=== PATIENT | female | born 1940 | race Caucasian/White ===

== ENCOUNTER 2021-06-09 12:07 | Inpatient (IN) ==
[2021-06-09] MEDS ORDERED: IOPAMIDOL 100 ML BOTTLE IV ONE (12:08)
[2021-06-09] MEDS ORDERED: DILTIAZEM 25 MG/5 ML VIAL IV ONE ×2 (12:14→15:11)
[2021-06-09] MEDS ORDERED: 0.9 % SODIUM CHLORIDE 1,000 ML IV ONE (12:14)
[2021-06-09] MEDS ORDERED: ENOXAPARIN 100 MG/ML SYRINGE SQ SCH (12:15)
--- NOTE | 2021-06-09 12:20 | Emergency Department Note ---
Arrhythmia/Palpitations HPI General Chief Complaint: Arrhythmia/Palpitations Stated Complaint: irreg heart Time Seen by Provider: 06/09/21 12:14 Source: patient Mode of arrival: EMS Limitations: no limitations History of Present Illness HPI Narrative: Narrative: The patient presents with A. fib with RVR. The patient herself denies any symptoms. She denies chest or abdominal pain. She denies palpitations. She denies dyspnea. She denies recent vomiting or diarrhea. She denies fever or cough. She denies any history of dysrhythmias. Related Data Allergies Allergy/AdvReac Type Severity Reaction Status Date / Time No Known Allergies AdvReac Verified 06/09/21 12:13 Review of Systems ROS ROS Narrative: Narrative: All systems ED: reviewed and negative except as stated. [facility], [facility] Narrative Patient History Narrative: Narrative: Medical/Surgical/Family History All Active Problems (Updated 06/09/21 @ 16:31 by Mohit Watson MD) Atrial fibrillation with rapid ventricular response (Acute) Hypoxia (Acute) Social History Smoking Status: Unknown if ever smoked Exam Narrative Narrative: Narrative: General Limitations: no limitations General appearance: Present alert and in no apparent distress Head Head: Present atraumatic and normal inspection Eye Eye: Present normal appearance Neck Neck: Present normal inspection, full ROM and trachea midline Chest Chest: Present normal inspection and symmetric chest wall rise Respiratory Respiratory: Present normal lung sounds bilaterally; Absent respiratory distress Cardiovascular Cardiovascular: Present tachycardia and irregular rhythm; Absent regular rate or normal rhythm Adbominal Abdominal: Present soft; Absent distention or tenderness Extremities Extremities: Present normal inspection, full ROM and pedal edema; Absent calf tenderness or other (Negative Homans' sign) Back Back: Present full ROM Neurological Neurological: Present alert and oriented X3 Psychiatric Psychiatric: Present normal affect and normal mood Skin Skin: Present warm (WNL) and dry Course Reevaluation(s) Reevaluation #1: The patient's heart rate is improved but she is still tachycardic. She is already at 15 on the Cardizem drip. Per the protocol at this facility, they do not want to increase the rate. They are recommending that we give an additional bolus. Plan to give an additional 10 mg of Cardizem. Time: 15:11 Consultations Consultation #1: I spoke with the hospitalist, Dr. Young. He agreed to come and evaluate this patient for local admission. He is aware that the CT is still pending. However, the patient has already been given Lovenox for the A. fib so is anticoagulated even if the CT is positive for pulmonary emboli Time: 16:29 Vital Signs Vital signs: Vital Signs Temperature 98.2 F 06/09/21 12:08 Pulse Rate 173 H 06/09/21 12:08 Respiratory Rate 24 H 06/09/21 12:08 Blood Pressure 114/82 06/09/21 12:08 Pulse Oximetry (%) 87 L 06/09/21 12:08 Temperature 98.2 F 06/09/21 12:08 Pulse Rate 71 06/09/21 16:00 Respiratory Rate 16 06/09/21 16:56 Blood Pressure 117/70 06/09/21 16:52 Pulse Oximetry (%) 89 L 06/09/21 16:00 MDM MDM Narrative Medical decision making narrative: Narrative: The patient presents asymptomatic but is noted to be in atrial fibrillation with RVR. We will obtain appropriate labs and give a liter of fluid. We will give a dose of Cardizem. We will anticoagulate with a dose of Lovenox. Once work-up is complete, patient most likely will need to either be admitted or transferred. Lab Data Lab results reviewed: Yes I reviewed the patient's lab results. Result diagrams: 06/09/21 12:30 06/09/21 12:30 Labs: Lab Results 06/09/21 06/09/21 06/09/21 Range/Units 12:30 12:30 12:30 WBC 7.1 (4.5-11.0) K/mcL RBC 3.12 L (3.59-5.38) M/mcL Hgb 10.5 L (11.2-15.7) g/dL Hct 33.9 L (34.1-44.9) % MCV 108.7 H (80.0-100.0) fL MCH 33.7 (26.0-34.0) pg MCHC 31.0 (31.0-36.0) g/dL RDW 18.6 H (11.5-14.5) % Plt Count 198 (140-440) K/mcL MPV 9.5 (7.4-10.4) fL Neut % (Auto) 75.9 (38.0-78.0) % Lymph % (Auto) 14.8 L (15.5-49.0) % [place] % (Auto) 7.8 (1.0-12.0) % Eos % (Auto) 1.1 (0.0-7.0) % Baso % (Auto) 0.4 (0.0-2.0) % Lymph # (Auto) 1.05 L (1.50-4.80) K/mcL [place] # (Auto) 0.55 (0.10-0.90) K/mcL Eos # (Auto) 0.08 (0.00-0.70) K/mcL Baso # (Auto) 0.03 (0.00-0.30) K/mcL Absolute Neutrophils 5.37 (1.80-8.00) K/mcL PT 17.1 H (11.9-14.5) sec INR 1.3 H (0.9-1.1) APTT 29.3 (20.0-37.0) sec D-Dimer 2.38 H (0.27-0.50) ug/mL Sodium 141 (133-145) mmol/L Potassium 4.3 (3.3-5.1) mmol/L Chloride 106 (96-108) mmol/L Carbon Dioxide 20 L (22-30) mmol/L Anion Gap 15.0 (8.0-16.0) BUN 27 H (8-23) mg/dL Creatinine 0.8 (0.6-1.1) mg/dL GFR Calculation 68 Glucose 108 H (70-105) mg/dL Calcium 8.7 (8.6-10.4) mg/dL Total Bilirubin 0.6 (0.1-1.0) mg/dL AST 23 (<32) U/L ALT 12 (<40) U/L Alkaline Phosphatase 117 (39-117) U/L Troponin T (<0.03) ng/mL NT-Pro-B Natriuret Pep 5031.0 H (<450.0) pg/mL Total Protein 6.9 (5.9-8.4) gm/dL Albumin 3.2 (3.2-5.2) gm/dL Globulin 3.7 (2.2-3.7) gm/dL Albumin/Globulin Ratio 0.9 L (1.0-2.3) TSH 4.50 (0.27-5.01) uIU/mL 06/09/21 Range/Units 12:30 WBC (4.5-11.0) K/mcL RBC (3.59-5.38) M/mcL Hgb (11.2-15.7) g/dL Hct (34.1-44.9) % MCV (80.0-100.0) fL MCH (26.0-34.0) pg MCHC (31.0-36.0) g/dL RDW (11.5-14.5) % Plt Count (140-440) K/mcL MPV (7.4-10.4) fL Neut % (Auto) (38.0-78.0) % Lymph % (Auto) (15.5-49.0) % [place] % (Auto) (1.0-12.0) % Eos % (Auto) (0.0-7.0) % Baso % (Auto) (0.0-2.0) % Lymph # (Auto) (1.50-4.80) K/mcL [place] # (Auto) (0.10-0.90) K/mcL Eos # (Auto) (0.00-0.70) K/mcL Baso # (Auto) (0.00-0.30) K/mcL Absolute Neutrophils (1.80-8.00) K/mcL PT (11.9-14.5) sec INR (0.9-1.1) APTT (20.0-37.0) sec D-Dimer (0.27-0.50) ug/mL Sodium (133-145) mmol/L Potassium (3.3-5.1) mmol/L Chloride (96-108) mmol/L Carbon Dioxide (22-30) mmol/L Anion Gap (8.0-16.0) BUN (8-23) mg/dL Creatinine (0.6-1.1) mg/dL GFR Calculation Glucose (70-105) mg/dL Calcium (8.6-10.4) mg/dL Total Bilirubin (0.1-1.0) mg/dL AST (<32) U/L ALT (<40) U/L Alkaline Phosphatase (39-117) U/L Troponin T < 0.01 (<0.03) ng/mL NT-Pro-B Natriuret Pep (<450.0) pg/mL Total Protein (5.9-8.4) gm/dL Albumin (3.2-5.2) gm/dL Globulin (2.2-3.7) gm/dL Albumin/Globulin Ratio (1.0-2.3) TSH (0.27-5.01) uIU/mL ED POC Tests ED POC Tests: ALICIA - SARS Antigen Negative Radiology Data Radiology results reviewed: Yes I reviewed the patient's radiology results. Radiology results narrative: IMPRESSION: Findings consistent with congestive heart failure EKG Data EKG #1: EKG attestation: Yes I reviewed and interpreted this EKG. and Yes There are no EKG findings of acute coronary syndrome EKG results narrative: Atrial fibrillation, rate 175, normal axis, QTC 470, narrow complex QRS, no acute ST or T changes concerning for acute infarction CC TIME Critical Care Time Critical Care Time: Yes Total Critical Care Time: 85 Attestation: Without intervention, the patient would have had a deleterious outcome Discharge Plan Patient/Caregiver Discharge Instructions Pt seen by INSURANCE COMMISSIONER/PA only: No Clinical Impression: Atrial fibrillation with rapid ventricular response, Hypoxia Patient Disposition: Xfer As Inpt ([facility]) Condition: Fair Follow up with: No,PCP [Primary Care Provider] -
--- NOTE | 2021-06-09 12:50 | XRay Report ---
INDICATION: dysrhythmia TECHNIQUE: AP portable semiupright chest x-ray COMPARISON: None FINDINGS:There is mild cardiomegaly. There are parenchymal infiltrates with bibasilar predominance. There are bilateral pleural effusions, right worse than left. Appearance is most consistent with congestive heart failure. Infiltrates are worse at the lung bases. Superimposed pneumonia is possible There is no dense consolidation. No focal pulmonary parenchymal mass. There is degenerative disease in both shoulders, right worse than left. There is superior decentering of the humeral heads consistent with rotator cuff degeneration. There has been apparent surgical resection of the mid and distal right clavicle IMPRESSION: Findings consistent with congestive heart failure Interpreted and Authenticated by: Partha Franco 06/09/21
--- NOTE | 2021-06-09 12:59 | EKG ---
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
[2021-06-09 13:24] LABS: Basophils # (Auto) 0.03 K/mcL (0.00-0.30); Basophils % (Auto) 0.4 % (0.0-2.0); Eosinophils # (Auto) 0.08 K/mcL (0.00-0.70); Eosinophils % (Auto) 1.1 % (0.0-7.0); Hematocrit 33.9 % (34.1-44.9); Hemoglobin 10.5 g/dL (11.2-15.7); Lymphocytes # (Auto) 1.05 K/mcL (1.50-4.80); Lymphocytes % (Auto) 14.8 % (15.5-49.0); Mean Cell Volume 108.7 fL (80.0-100.0); Mean Platelet Volume 9.5 fL (7.4-10.4); Monocytes # (Auto) 0.55 K/mcL (0.10-0.90); Monocytes % (Auto) 7.8 % (1.0-12.0); Neutrophils % (Auto) 75.9 % (38.0-78.0); Platelet Count 198 K/mcL (140-440); RBC 3.12 M/mcL (3.59-5.38); Red Cell Distribution Width 18.6 % (11.5-14.5); WBC 7.1 K/mcL (4.5-11.0)
[2021-06-09] MEDS: DILTIAZEM 125 MG in DEXTROSE 5% IN WATER 100 ML IV SCH ×2 (13:46→22:17)
[2021-06-09 14:01] LABS: ALT/SGPT 12 U/L (<40); AST/SGOT 23 U/L (<32); Albumin 3.2 gm/dL (3.2-5.2); Albumin/Globulin Ratio 0.9 (1.0-2.3); Alkaline Phosphatase 117 U/L (39-117); Bilirubin,Total 0.6 mg/dL (0.1-1.0); Blood Urea Nitrogen 27 mg/dL (8-23); Calcium 8.7 mg/dL (8.6-10.4); Carbon Dioxide 20 mmol/L (22-30); Chloride 106 mmol/L (96-108); Globulin 3.7 gm/dL (2.2-3.7); Glomerular Filtration Rate 68; Glucose 108 mg/dL (70-105)
[2021-06-09 14:53] LABS: INR 1.3 (0.9-1.1); Partial Thromboplastin Time 29.3 sec (20.0-37.0); Prothrombin Time 17.1 sec (11.9-14.5)
--- NOTE | 2021-06-09 16:43 | Internal Med History&Physical ---
HPI History of Present Illness Patient information: Note initiated : 06/09/21 at 4:41 pm Service Date, if different from initiated Date: [] Patient: Madie Cohn a 80 y/o F admitted on for Irregular Heart. Chief Complaint: [] History of present illness: Ms. Cohn is a 80 year old F with no significant prior medical history who presents to the ER with 3 weeks onset of gradually progressive lower extremity swelling/shortness of breath/orthopnea/fatigue/malaise and associated cough. Patient has not been able to function over the last 3 to 4 days. She presents today to the ER for evaluation of chest palpitation. Initial work-up was consistent with A. fib with RVR. Patient was started on diltiazem drip.CT angiogram chest was ordered. X-ray consistent with CHF At the time of my evaluation patient is alert and oriented. She was able to answer most the question but appears quite fatigued and labored. She endorses history as above. Denies NSAID intake, changes in medication, excessive salt diet or alcoholism. She feels that she has gained in excess of 20 pounds over the last 3 weeks. She endorses a loss of appetite, increasing malaise and fatigue but denies fever, joint pain, rash. Review of systems 10 point review system was performed and is negative except for 1 discussed above PFSH PFSH All Active Problems (Updated 06/09/21 @ 16:31 by Mohit Watson MD) Atrial fibrillation with rapid ventricular response (Acute) Hypoxia (Acute) MEDS/ALLERGIES Home Medications and Allergies Allergies Allergy/AdvReac Type Severity Reaction Status Date / Time No Known Allergies AdvReac Verified 06/09/21 12:13 EXAM Constitutional Vitals: Temp Pulse Resp BP Pulse Ox 98.2 F 71 20 123/72 89 L 06/09/21 12:08 06/09/21 16:00 06/09/21 16:00 06/09/21 16:00 06/09/21 16:00 Lethargic fatigued and anxious Head normocephalic Oral cavity moist No ear or nose discharge Eye no subconjunctival pallor, movement symmetrical S1-S2 irregular tachycardia Labored breathing on 3 L oxygen Nondistended nontender abdomen Bilateral 2+ pitting edema all the way up to mid thigh from ankle. Nojoint swelling Skin no suspicious lesion Psych anxious but no hallucination Neuro GCS 13 DATA Data Completed and Pending Labs: Labs from last 24 hours 06/09/21 06/09/21 06/09/21 12:30 12:30 12:30 WBC RBC Hgb Hct MCV MCH MCHC RDW Plt Count MPV Neut % (Auto) Lymph % (Auto) [place] % (Auto) Eos % (Auto) Baso % (Auto) Lymph # (Auto) [place] # (Auto) Eos # (Auto) Baso # (Auto) Absolute Neutrophils PT 17.1 H INR 1.3 H APTT 29.3 D-Dimer 2.38 H Sodium 141 Potassium 4.3 Chloride 106 Carbon Dioxide 20 L Anion Gap 15.0 BUN 27 H Creatinine 0.8 GFR Calculation 68 Glucose 108 H Calcium 8.7 Total Bilirubin 0.6 AST 23 ALT 12 Alkaline Phosphatase 117 Troponin T < 0.01 NT-Pro-B Natriuret Pep 5031.0 H Total Protein 6.9 Albumin 3.2 Globulin 3.7 Albumin/Globulin Ratio 0.9 L TSH 4.50 06/09/21 12:30 WBC 7.1 RBC 3.12 L Hgb 10.5 L Hct 33.9 L MCV 108.7 H MCH 33.7 MCHC 31.0 RDW 18.6 H Plt Count 198 MPV 9.5 Neut % (Auto) 75.9 Lymph % (Auto) 14.8 L [place] % (Auto) 7.8 Eos % (Auto) 1.1 Baso % (Auto) 0.4 Lymph # (Auto) 1.05 L [place] # (Auto) 0.55 Eos # (Auto) 0.08 Baso # (Auto) 0.03 Absolute Neutrophils 5.37 PT INR APTT D-Dimer Sodium Potassium Chloride Carbon Dioxide Anion Gap BUN Creatinine GFR Calculation Glucose Calcium Total Bilirubin AST ALT Alkaline Phosphatase Troponin T NT-Pro-B Natriuret Pep Total Protein Albumin Globulin Albumin/Globulin Ratio TSH A/P Narrative A/P Narrative: * Acute decompensated heart failure, likely secondary to A. fib RVR. Echocardiogram, diuresis, beta-roni once acute decompensation resolves. Optimize CHF management based on echo findings * A. fib with RVR-aggressive rate control measures. Anticoagulation for CVA prophylaxis on apixaban * Acute hypoxic respiratory failure-secondary to acute decompensated heart failure/pulmonary edema. Continue diuresis/supplemental oxygen * Weakness and deconditioning PT OT/gait and safety eval and training * Prophylaxis apixaban Plan * Inpatient PCU admission * Cardizem drip * Rate control measures * Anticoagulation on apixaban * Supplemental oxygen * Diuresis * Echocardiogram Time Spent With Patient Time: Total time spent is greater than 50% in coordination of care (as documented) at patient's floor/unit and/or counseling patient: Total time spent with greater than 50% in coordination of care (as documented) at patient's floor/unit and/or counseling patient:: Greater than 35 minutes
--- NOTE | 2021-06-09 17:27 | Cat Scan Report ---
INDICATION: palpitations COMPARISON: Previous chest x-ray dated 06/09/2021 TECHNIQUE: Axial images obtained through the chest. 60ml Isovue 370 injected intravenously, and scanning was performed during pulmonary arterial phase. Sagittally and coronally reformatted images were obtained. MIP reformatted images. FINDINGS: Lungs:There is centrilobular emphysema. There is bilateral lower lobe volume loss. Mediastinum, vascular:Main pulmonary artery, right pulmonary artery, left pulmonary artery are negative. No intraluminal filling defects. No lobar, segmental, or subsegmental emboli. Thoracic aorta is negative. No aneurysmal dilatation. Main pulmonary artery is within normal limits. There is no dilatation No pathologic mediastinal or hilar adenopathy Heart:No cardiomegaly. No pericardial effusion. There is reflux of contrast material into the inferior vena cava consistent with right heart strain. There is severe coronary artery calcification. Pleura:Bilateral moderate to large pleural effusions, right larger than left Axilla, supraclavicular regions, chest wall:No pathologic axillary or supraclavicular adenopathy. Musculoskeletal:Negative thoracic spine. No compression fracture. No lytic lesion. No rib or sternal lesions Upper Abdomen:Extensive atherosclerotic calcification. Dense calcification at the origin of the superior mesenteric artery with stenosis There is a mild L1 compression deformity. IMPRESSION: 1. Negative pulmonary CTA 2. Centrilobular emphysema 3. Moderate to large pleural effusions, right greater than left 4. Bilateral lower lobe volume loss 5. Reflux of contrast material into the inferior vena cava consistent with right heart strain 6. 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 Mild compression deformity of the L1 vertebral body The exam was performed using radiation dose optimization techniques including, but not limited to, automated exposure control, adjustment of the mA and/or kV according to patient size and use of iterative reconstruction technique. Interpreted and Authenticated by: Partha Franco 06/09/21
[2021-06-09 18:00] LABS: Amphetamine Screen,Urine None detected; Barbiturate Screen,Urine None detected; Benzodiazepines Screen,Urine None detected; Cannabinoid Screen,Urine None detected; Cocaine Screen,Urine None detected; Opiate Screen,Urine None detected; Oxycodone, Urine Screen None detected; Phencyclidine Screen,Urine None detected
[2021-06-09] MEDS ORDERED: POTASSIUM CHLORIDE 40 MEQ in DEXTROSE 5% IN WATER 500 ML IV PRN (18:55)
[2021-06-09] MEDS ORDERED: MELATONIN 3 MG TABLET PO PRN (18:55)
[2021-06-09] MEDS ORDERED: POTASSIUM CHLORIDE 20 MEQ PACKET PO PRN (18:55)
[2021-06-09] MEDS ORDERED: METOPROLOL TARTRATE 5 MG/5 ML VIAL IV PRN (18:55)
[2021-06-09] MEDS ORDERED: ACETAMINOPHEN 325 MG TABLET PO PRN (18:55)
[2021-06-09] MEDS ORDERED: ACETAMINOPHEN 650 MG/65 ML BAG IV PRN (18:55)
[2021-06-09] MEDS ORDERED: MAGNESIUM SULFATE 2 GM/50 ML BAG IV PRN (18:55)
[2021-06-09] MEDS ORDERED: BISACODYL 10 MG SUPP.RECT PR PRN (18:55)
[2021-06-09] MEDS ORDERED: POLYETHYLENE GLYCOL 3350 17 GM PACKET PO PRN (18:55)
[2021-06-09] MEDS ORDERED: ONDANSETRON 4 MG/2 ML VIAL IV PRN (18:55)
[2021-06-09] MEDS ORDERED: ONDANSETRON 4 MG ODT TABLET SL PRN (18:55)
[2021-06-09] MEDS ORDERED: hydrALAZINE 20 MG/ML VIAL IV PRN (18:55)
[2021-06-09] MEDS ORDERED: DILTIAZEM 125 MG/25 ML VIAL IV ONE (19:49)
[2021-06-09] MEDS ORDERED: FUROSEMIDE 40 MG/4 ML VIAL IV ONE ×2 (19:53→20:02)
[2021-06-09] MEDS: 0.9 % SODIUM CHLORIDE 10 ML SYRINGE IV SCH (20:00)
[2021-06-09] MEDS: DILTIAZEM 30 MG TABLET PO SCH (20:05)
[2021-06-09] MEDS ORDERED: APIXABAN 5 MG TABLET PO SCH (21:00)
[2021-06-09] MEDS ORDERED: SENNOSIDES/DOCUSATE SODIUM 1 TAB TABLET PO SCH (21:00)
[2021-06-09] MEDS ORDERED: DOCUSATE SODIUM 100 MG CAPSULE PO SCH (21:00)
[2021-06-09] MEDS: FUROSEMIDE 40 MG/4 ML VIAL IV SCH (22:36)
[2021-06-10] MEDS: DILTIAZEM 30 MG TABLET PO SCH ×2 (00:19→06:06)
[2021-06-10] MEDS: 0.9 % SODIUM CHLORIDE 10 ML SYRINGE IV SCH ×2 (03:20→06:10)
[2021-06-10] MEDS: FUROSEMIDE 40 MG/4 ML VIAL IV SCH (06:06)
--- NOTE | 2021-06-10 06:10 | Cat Scan Report ---
INDICATION: rule out CVA COMPARISON: None. TECHNIQUE: Axial noncontrast-enhanced images through the brain. Sagittally and coronally reformatted images. FINDINGS: Cerebral hemispheres:Negative. No intra-axial abnormality. No intra-axial hematoma. No localized mass effect.Brain volume is within normal limits for age. There is extensive white matter abnormality consistent with severe small vessel ischemic change in this 80-year-old patient. There is a 4 mm nonacute left thalamic lacunar infarction. Brainstem and cerebellum:No intra-axial abnormality Extra-axial:No acute hemorrhage. No subdural or epidural hematoma. No subarachnoid hemorrhage. Basilar cisterns are normal. There is dense calcification of the cavernous segments of the internal carotid arteries bilaterally. Calvarial:No calvarial fracture. No lytic lesion Temporal bones are negative. No destructive lesions Soft tissue, orbits, sinuses:Orbits and visualized facial soft tissues and paranasal sinuses are negative IMPRESSION: 1. No acute intracranial hemorrhage 2. Severe white matter abnormality consistent with small vessel ischemic change 3. No acute intracranial abnormality. The exam was performed using radiation dose optimization techniques including, but not limited to, automated exposure control, adjustment of the mA and/or kV according to patient size and use of iterative reconstruction technique. Interpreted and Authenticated by: Partha Franco 06/10/21
[2021-06-10 07:24] LABS: Basophils # (Auto) 0.03 K/mcL (0.00-0.30); Basophils % (Auto) 0.6 % (0.0-2.0); Eosinophils # (Auto) 0.13 K/mcL (0.00-0.70); Eosinophils % (Auto) 2.8 % (0.0-7.0); Hemoglobin 9.3 g/dL (11.2-15.7); Lymphocytes # (Auto) 0.63 K/mcL (1.50-4.80); Lymphocytes % (Auto) 13.5 % (15.5-49.0); Mean Cell Volume 105.8 fL (80.0-100.0); Mean Platelet Volume 9.6 fL (7.4-10.4); Monocytes # (Auto) 0.43 K/mcL (0.10-0.90); Monocytes % (Auto) 9.2 % (1.0-12.0); Neutrophils % (Auto) 73.9 % (38.0-78.0); Platelet Count 150 K/mcL (140-440); RBC 2.93 M/mcL (3.59-5.38); Red Cell Distribution Width 18.3 % (11.5-14.5); WBC 4.7 K/mcL (4.5-11.0)
[2021-06-10] MEDS ORDERED: IOPAMIDOL 100 ML BOTTLE IV ONE (07:40)
[2021-06-10 07:54] LABS: ALT/SGPT 10 U/L (<40); AST/SGOT 20 U/L (<32); Albumin 2.8 gm/dL (3.2-5.2); Albumin/Globulin Ratio 0.8 (1.0-2.3); Alkaline Phosphatase 98 U/L (39-117); Bilirubin,Direct 0.4 mg/dL (<0.3); Bilirubin,Total 0.8 mg/dL (0.1-1.0); Blood Urea Nitrogen 26 mg/dL (8-23); Calcium 8.3 mg/dL (8.6-10.4); Carbon Dioxide 25 mmol/L (22-30); Chloride 105 mmol/L (96-108); Globulin 3.3 gm/dL (2.2-3.7); Glomerular Filtration Rate 68; Glucose 75 mg/dL (70-105); Lactate Dehydrogenase 191 U/L (135-225); Phosphorous 3.2 mg/dL (2.5-4.5); Thyroid Stimulating Hormone 3.26 uIU/mL (0.27-5.01); Triglycerides 66 mg/dL (<150); Uric Acid 9.8 mg/dL (2.5-8.0)
[2021-06-10] MEDS: DILTIAZEM 125 MG in DEXTROSE 5% IN WATER 100 ML IV SCH (08:02)
--- NOTE | 2021-06-10 08:21 | Transfer Summary ---
Discharge Provider Provider Patient information: Note initiated : 06/10/21 at 8:13 am Service Date, if different from initiated Date: [] Patient: Madie Cohn a 80 y/o F admitted on 06/09/21 for Irregular Heart. Chief Complaint: [] Date of admission: 06/09/21 18:42 Discharge date: 06/10/21 Primary care physician: PCP No Consults: 06/09/21 Consult to Physician [CONS] Stat Comment: Consulting Provider: Rafael Allan Reason For Exam: Physician to Consult 06/10/21 06:50 Consult to Physician [CONS] Routine Comment: Consulting Provider: Margarita White Reason For Exam: Physician to Consult Discharge Meds Discharge Medications Home Medications clobetasol 0.05 % topical ointment 1 applic TOPICAL QHS 06/09/21 [History Confirmed 06/09/21 Last Taken 06/08/21 20:00] COURSE Hospital Course Hospital course: Transfer/discharge diagnosis * Acute EMBOLIC CVA with left hemiparesis, 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 Transfer to [facility] emergency department for neuro intervention. [facility] and [facility] physician. Recommends urgent transfer to tertiary center * Acute hypoxic respiratory failure responded well to noninvasive ventilation overnight. Now on 4 L oxygen. Secondary to pleural effusion/pulmonary edema clinically improving. * Acute decompensated heart failure, likely secondary to A. fib RVR. Echocardiogram pending, responded well to diuresis overnight. * A. fib with RVR-adequate rate control achieved on Cardizem drip. Patient was initiated on full dose Lovenox in ER. And subsequently transitioned to apixaban 5 mg twice daily * Weakness and deconditioning secondary to decompensated heart failure Brief hospital course Ms. Cohn is a 80 year old F with no significant prior medical history who presents to the ER with 3 weeks onset of gradually progressive lower extremity swelling/shortness of breath/orthopnea/fatigue/malaise and associated cough. Patient has not been able to function over the last 3 to 4 days. She presents today to the ER for evaluation of chest palpitation. Initial work-up was consistent with A. fib with RVR. Patient was started on diltiazem drip.CT angiogram chest was ordered. X-ray consistent with CHF At the time of my evaluation patient is alert and oriented. She was able to answer most the question but appears quite fatigued and labored. She endorses history as above. Denies NSAID intake, changes in medication, excessive salt diet or alcoholism. She feels that she has gained in excess of 20 pounds over the last 3 weeks. She endorses a loss of appetite, increasing malaise and fatigue but denies fever, joint pain, rash. Patient experiencing worsening hypoxic respiratory failure now requiring 10 L oxygen, extremely short of breath. Start aggressive diuresis/noninvasive ventilation to maintain saturation and reporting alveolar recruitment. Check blood gas Interval blood gas PO2 90 on 10 L oxygen mask. Started on noninvasive ventilation overnight. Diuresed well. 06/10 around 3:20 AM nurse noticed left-sided weakness. CT head reveals remote CVA Code stroke initiated. CT angiogram head neck reveals subclavian/carotid thrombi likely embolic CVA. Stroke neurologist recommends transfer to transfer center for neuro intervention. Case discussed with [facility]. Patient accepted for further evaluation management. Patient was transferred via air ambulance. Patient critically ill. Critical time spent on management of decompensated heart failure/respiratory failure/acute CVA/discussion with multiple care providers at tertiary center and transfer coordination in excess of 140 minutes Discharge diagnosis: Acute CVA Time Spent with Patient Time attestation: Total time spent providing and/or coordinating discharge services: EXAM Constitutional Vitals: Temp Pulse Resp BP Pulse Ox 97.3 F 86 16 108/63 95 06/10/21 07:35 06/10/21 06:05 06/10/21 07:52 06/10/21 07:35 06/10/21 06:05 Discharge Data Data Completed and Pending Labs on day of discharge: Labs from last 24 hours 06/10/21 06/10/21 06/09/21 05:14 05:14 17:10 WBC 4.7 RBC 2.93 L Hgb 9.3 L Hct 31.0 L MCV 105.8 H MCH 31.7 MCHC 30.0 L RDW 18.3 H Plt Count 150 MPV 9.6 Neut % (Auto) 73.9 Lymph % (Auto) 13.5 L [place] % (Auto) 9.2 Eos % (Auto) 2.8 Baso % (Auto) 0.6 Lymph # (Auto) 0.63 L [place] # (Auto) 0.43 Eos # (Auto) 0.13 Baso # (Auto) 0.03 Absolute Neutrophils 3.44 PT INR APTT D-Dimer Sodium 141 Potassium 3.3 Chloride 105 Carbon Dioxide 25 Anion Gap 11.0 BUN 26 H Creatinine 0.8 GFR Calculation 68 Glucose 75 Uric Acid 9.8 H Calcium 8.3 L Phosphorus 3.2 Magnesium 1.9 Total Bilirubin 0.8 Direct Bilirubin 0.4 H GGT 18 AST 20 ALT 10 Alkaline Phosphatase 98 Lactate Dehydrogenase 191 Troponin T NT-Pro-B Natriuret Pep Total Protein 6.1 Albumin 2.8 L Globulin 3.3 Albumin/Globulin Ratio 0.8 L Triglycerides 66 TSH 3.26 Urine Opiates Screen None detected Ur Opiates Confirm TNP Ur Oxycodone Screen None detected Urine Methadone Screen None detected Ur Methadone Confirm TNP Ur Barbiturates Screen None detected Ur Barbiturate Confirm TNP Ur Phencyclidine Scrn None detected Urine PCP Confirm TNP Ur Amphetamines Screen None detected U Amphetamines Confirm TNP U Benzodiazepines Scrn None detected U Benzodiazepine Confm TNP Urine Cocaine Screen None detected Urine Cocaine Confirm TNP U Cannabinoids Confirm TNP U Marijuana (THC) Screen None detected 06/09/21 06/09/21 06/09/21 12:30 12:30 12:30 WBC RBC Hgb Hct MCV MCH MCHC RDW Plt Count MPV Neut % (Auto) Lymph % (Auto) [place] % (Auto) Eos % (Auto) Baso % (Auto) Lymph # (Auto) [place] # (Auto) Eos # (Auto) Baso # (Auto) Absolute Neutrophils PT 17.1 H INR 1.3 H APTT 29.3 D-Dimer 2.38 H Sodium 141 Potassium 4.3 Chloride 106 Carbon Dioxide 20 L Anion Gap 15.0 BUN 27 H Creatinine 0.8 GFR Calculation 68 Glucose 108 H Uric Acid Calcium 8.7 Phosphorus Magnesium Total Bilirubin 0.6 Direct Bilirubin GGT AST 23 ALT 12 Alkaline Phosphatase 117 Lactate Dehydrogenase Troponin T < 0.01 NT-Pro-B Natriuret Pep 5031.0 H Total Protein 6.9 Albumin 3.2 Globulin 3.7 Albumin/Globulin Ratio 0.9 L Triglycerides TSH 4.50 Urine Opiates Screen Ur Opiates Confirm Ur Oxycodone Screen Urine Methadone Screen Ur Methadone Confirm Ur Barbiturates Screen Ur Barbiturate Confirm Ur Phencyclidine Scrn Urine PCP Confirm Ur Amphetamines Screen U Amphetamines Confirm U Benzodiazepines Scrn U Benzodiazepine Confm Urine Cocaine Screen Urine Cocaine Confirm U Cannabinoids Confirm U Marijuana (THC) Screen 06/09/21 12:30 WBC 7.1 RBC 3.12 L Hgb 10.5 L Hct 33.9 L MCV 108.7 H MCH 33.7 MCHC 31.0 RDW 18.6 H Plt Count 198 MPV 9.5 Neut % (Auto) 75.9 Lymph % (Auto) 14.8 L [place] % (Auto) 7.8 Eos % (Auto) 1.1 Baso % (Auto) 0.4 Lymph # (Auto) 1.05 L [place] # (Auto) 0.55 Eos # (Auto) 0.08 Baso # (Auto) 0.03 Absolute Neutrophils 5.37 PT INR APTT D-Dimer Sodium Potassium Chloride Carbon Dioxide Anion Gap BUN Creatinine GFR Calculation Glucose Uric Acid Calcium Phosphorus Magnesium Total Bilirubin Direct Bilirubin GGT AST ALT Alkaline Phosphatase Lactate Dehydrogenase Troponin T NT-Pro-B Natriuret Pep Total Protein Albumin Globulin Albumin/Globulin Ratio Triglycerides TSH Urine Opiates Screen Ur Opiates Confirm Ur Oxycodone Screen Urine Methadone Screen Ur Methadone Confirm Ur Barbiturates Screen Ur Barbiturate Confirm Ur Phencyclidine Scrn Urine PCP Confirm Ur Amphetamines Screen U Amphetamines Confirm U Benzodiazepines Scrn U Benzodiazepine Confm Urine Cocaine Screen Urine Cocaine Confirm U Cannabinoids Confirm U Marijuana (THC) Screen Discharge Plan Patient/Caregiver Discharge Instructions Activity: other Diet: NPO Prescriptions: No Action clobetasol 0.05 % Ointment 1 applic TOPICAL QHS 0RF Follow Up Plan Follow up with: No,PCP [Primary Care Provider] - Patient Disposition: [facility] Hospital Course: Transfer to [facility] Prognosis: Fair Rehab Potential: Serious I certify that the patient requires SNF services: No Overall status at discharge: patient is not back to baseline Discharge Orders: Discharge Order (Routine); Ordered 06/10/21 Ordered By: Rafael Allan Discharge Comment: Transfer to [facility] ER for neuro intervention QUALITY VTE Deep Vein Thrombosis/Pulmonary Embolism Present on Admission: No
--- NOTE | 2021-06-10 08:24 | Cat Scan Report ---
INDICATION: cva COMPARISON: None. TECHNIQUE: Axial images were obtained through the upper chest, neck, and head during arterial phase. MIP and CPR reformatted images. 75ml Isovue 370 injected intravenously. FINDINGS: AORTIC ARCH:Calcified atherosclerotic plaque. No thoracic aortic aneurysm. There is no dissection. There is prominent calcification at the origin of the left subclavian artery. Dense calcification at the origin of the left vertebral artery with subtotal stenosis. Left vertebral artery is patent. Origin of left common carotid artery is negative. There is calcified plaque in the proximal innominate artery. Origin is not included on this examination. There is calcified plaque at the origin of the right common carotid artery without significant stenosis. There is calcified plaque at the origin of the right subclavian artery. Right vertebral artery origin is patent but there is hemodynamically significant stenosis in the proximal right vertebral artery. There is a filling defect in the post vertebral segment of the right subclavian artery with occlusion. CAROTID ARTERIES:Right: Extensive calcified and noncalcified thrombus in the right common carotid artery. There is hemodynamically significant stenosis in the distal right common carotid artery. There is noncalcified intraluminal thrombus within the distal right common carotid artery. Extensive calcified plaque in the proximal right internal carotid artery. There is a large noncalcified thrombus within the proximal right internal carotid artery. This causes hemodynamically significant stenosis. Left: There is extensive calcified plaque in the left common carotid artery. No noncalcified thrombus. No focal hemodynamically significant stenosis Calcified plaque at the origin of left internal carotid artery. No significant stenosis. No evidence for ulceration. Left internal carotid artery is otherwise negative. There is no stenosis or occlusion. No dissection or evidence for fibromuscular dysplasia VERTEBRAL ARTERIES:High-grade, subtotal stenosis in the proximal left vertebral artery. Hemodynamically significant stenosis in the proximal right vertebral artery. There is densely calcified plaque in the distal left vertebral artery at the C3 level. There is hemodynamically significant stenosis. Intracranial vertebral arteries are patent. There is calcified plaque in the left vertebral artery. Basilar artery is normal. There is no stenosis. AP cervical vertebral arteries are otherwise patent [place]:[There is dense atherosclerotic calcification of the cavernous and supraclinoid segments of the internal carotid arteries. No significant stenosis or occlusion. M1 segments of the middle cerebral arteries and A1 segments of the anterior cerebral arteries are negative. Intracranial vertebral arteries and basilar artery are negative. Posterior cerebral arteries and superior cerebellar arteries are negative] INTRACRANIAL CIRCULATION:No definite intracranial branch occlusion. No arteriovenous malformation or aneurysm. There is thrombotic material within the M2 segment of the left middle cerebral artery. This is not completely occlusive. M1 segments are negative. A1 segments of the anterior cerebral arteries are negative. Posterior cerebral arteries are negative No dural sinus occlusion UPPER CHEST:There is centrilobular emphysema. There is right upper lobe infiltrate which may represent pneumonia. There are large bilateral pleural effusions. NECK:No solid or cystic soft tissue mass. No pathologic lymphadenopathy. Right internal jugular vein is distended but appears patent. BRAIN:No acute intracranial hemorrhage. No focal attenuation abnormalities or pathologic contrast enhancement. IMPRESSION: 1. Extensive calcified atherosclerotic plaque as above 2. 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 Calcified plaque at the origins of the vertebral arteries bilaterally. There is subtotal stenosis in the left vertebral artery and hemodynamically significant stenosis in the right vertebral artery 4. Severe calcified plaque in the right common carotid artery and proximal internal carotid artery. There is noncalcified intraluminal thrombus within the right common carotid artery and proximal internal carotid artery 5. Intraluminal thrombus within the M2 segment of the left middle cerebral artery 6. Calcified plaque within the left common carotid artery without hemodynamically significant stenosis 7. Emphysema and large bilateral pleural effusions The exam was performed using radiation dose optimization techniques including, but not limited to, automated exposure control, adjustment of the mA and/or kV according to patient size and use of iterative reconstruction technique. Interpreted and Authenticated by: Partha Franco 06/10/21
[2021-06-10] MEDS ORDERED: THIAMINE 100 MG TABLET PO SCH (09:00)
[2021-06-10] MEDS ORDERED: MULTIVIT,THER IRON,CA,FA & MIN 1 TABLET PO SCH (09:00)
== END 2021-06-10 09:10 | disposition short-term general hospital (02) | DRG 64 ==
LOC: ED 12:07 → ICU 18:42
PROVIDERS: ADMIT Internal Medicine; ATTEND Internal Medicine